=== PATIENT | female | born 1995 | race Caucasian/White ===

== ENCOUNTER 2023-08-10 13:16 | Emergency (ER) | payer BC, SELFPAY ==
[2023-08-10 13:32] VITALS: BP 111/71; PULSE 72; RESP 16; TEMP 37.1; O2SAT 100
--- NOTE | 2023-08-10 14:00 | DI.RAD_ITS ---
Exam(s) XR SHOULDER LT COMPLETE 2+V XR HUMERUS LT EXAM: XR SHOULDER LT COMPLETE 2+V and XR humerus LT CLINICAL HISTORY: Left shoulder pain. TECHNIQUE: 2D digital imaging was performed of the left humerus and shoulder. Six images were obtai catie. AP, Grashey, Y-view and lateral views were obtained. COMPARISON: CR,XR XR CHEST 1V IN DI DEPT from 08/10/2023 FINDINGS: BONES: There is an acute comminuted fracture of the proximal left humerus. There is a transverse com ponent of the fracture through the surgical neck. There is impaction and mild lateral displacement o f the distal fracture. There also appears to be a component involving the greater tuberosity which i s nondisplaced. No bony destructive lesion is seen. JOINTS: No dislocation present. The acromioclavicular joint is unremarkable. SOFT TISSUE: Normal. IMPRESSION: Acute comminuted fracture involving the proximal left humerus as described above. DATA REPOSITORY: RADIATION DOSE DELIVERED:
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
[2023-08-10] MEDS: Ibuprofen 600 MG TAB PO (15:31)
[2023-08-10] MEDS: Ondansetron O.D.T. 4 MG TABEF PO (15:31)
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
--- NOTE | 2023-08-10 16:07 | DI.VRAD_ITS ---
PROCEDURE INFORMATION: Exam: XR Left Shoulder Exam date and time: 08/10/2023 2:43 PM Age: 28 years old Clinical indication: Other: Left shoulder pain TECHNIQUE: Imaging protocol: Radiologic exam of the left shoulder. Views: 2 or more views. COMPARISON: CR XR CHEST 1V IN DI DEPT 08/10/2023 2:42 PM FINDINGS: Bones/joints: Acute, displaced fracture of the left proximal humerus at the surgical neck, with extension into the greater tuberosity. No dislocation. Soft tissues: Normal. IMPRESSION: Acute, displaced fracture of the left proximal humerus at the surgical neck, with extension into the greater tuberosity. Dictated and Authenticated by: Tal Sheth MD. Ordering:CANDI Esparza MD
--- NOTE | 2023-08-10 16:07 | DI.VRAD_ITS ---
PROCEDURE INFORMATION: Exam: XR Left Humerus Exam date and time: 08/10/2023 2:49 PM Age: 28 years old Clinical indication: Other: Left proximal humerus pain TECHNIQUE: Imaging protocol: Radiologic exam of the left humerus. Views: 2 or more views. COMPARISON: CR XR SHOULDER LT COMPLETE 2+V 08/10/2023 2:43 PM FINDINGS: Bones/joints: Acute, displaced fracture of the proximal humerus at the surgical neck, with extension into the greater tuberosity. No dislocation. Soft tissues: Normal. IMPRESSION: Acute, displaced fracture of the proximal humerus at the surgical neck, with extension into the greater tuberosity. Dictated and Authenticated by: Tal Sheth MD. Ordering:CANDI Esparza MD
--- NOTE | 2023-08-10 17:00 | DI.CT_ITS ---
Exam(s) CT UPPER EXTREMITY LT WO EXAM: CT UPPER EXTREMITY LT WO CLINICAL HISTORY: ? Tuberosity fracture. TECHNIQUE: Imaging Protocol: Axial computed tomography images with coronal and sagittal reformatted images were created and reviewed. COMPARISON: CR,XR XR SHOULDER LT COMPLETE 2+V from 08/10/2023 CR,XR XR HUMERUS LT from 08/10/2023 FINDINGS: Bones: There is an acute comminuted fracture of the proximal humerus. The main fracture component o ccurs at the surgical neck site. There is impaction of the fracture noted. There is also mild later al displacement of the humeral shaft relative to the glenoid. The fracture extends superiorly to inv olve the lateral aspect of the greater tuberosity. The glenohumeral joint is well intact as is the a cromioclavicular joint. No cellulitic or osteomyelitic changes are identified. There is no evidence of joint space narrowing or cystic degeneration seen. No lytic or sclerotic lesions are identified. Soft Tissues: There is soft tissue swelling around the shoulder. IMPRESSION: There is an acute comminuted impacted fracture involving the proximal humerus. The primary component of the fractures through the surgical neck. But there is extension into the greater tuberosity. RADIATION DOSE DELIVERED: Total DLP Total DLP DATA REPOSITORY: All CT scans at this facility are submitted to the National Radiology Data Registry (NRDR) Dose Index Registry (DIR) with the [employer] (ACR). RADIATION OPTIMIZATION: All CT scans at this facility use at least one of these dose optimization te chniques: automated exposure control; mA and/or kV adjustment per patient size (includes targeted exa ms where dose is matched to clinical indication); or iterative reconstruction.
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
[2023-08-10] MEDS: Acetaminophen 325 MG TAB 650 MG PO (19:27)
--- NOTE | 2023-08-10 20:12 | ED.PROG_ITS ---
Date of service: 08/10/23 Time of Service: 20:12 Medical Decision Making Resting comfortably no acute distress. [facility] was able to review of CT imaging, no evidence of dislocation, patient cleared for discharge home in [facility] to follow-up to arrange for operative repair. Patient is from [place] and plans to return home in the coming days counseled to seek orthopedic follow-up within the next week otherwise to proceed with [facility] follow-up. Quality:[facility] Health Related Social Needs: No Data to Display Sign Out Sign Out Data: Sign Out Comment: 28-year-old female with left proximal closed nondominant humerus fracture with orthopedics at [facility] requesting the following which have been ordered: 1. Axillary view x-ray 2. CT left upper extremity shoulder 3. 81 mg aspirin Follow-up items: Please reconsult with [facility] following imaging. Please update patient following imaging. Please ensure patient has a new CD of her repeat x-ray and CT scan. Please ensure that the pharmacy is open to the patient to receive her opiates. Please ensure patient can pass an ambulatory and a p.o. trial in the ED prior to discharge. Last updated by Isaias Albert MD at 08/10/23 17:12 Discharge Plan Disposition Patient Disposition: Home Condition: Stable Discharge Details Clinical Impression: Closed left humeral fracture Primary Care Provider: Unknown,Unknown ED Provider: Catrachito James Home Meds and New Rx's Prescriptions: New morphine 15 mg tablet 15 mg PO Q8H PRNQty: 7 0RF aspirin 81 mg capsule 81 mg PO BID Qty: 60 0RF Discharge Instructions Additional Instructions: You are seen in the emergency department for your shoulder pain. You are found to have a humeral neck fracture for which you need to wear this sling until seen by the orthopedic team. Please return to the emergency department if you develop any numbness or tingling in your left hand or if your left hand turns blue. A prescription has been sent for morphine to the pharmacy department to help. Please take these only after taking acetaminophen and ibuprofen. Please not drive or drink alcohol after taking morphine. The orthopedic team has advised that you take aspirin twice a day. This unfortunate means that you cannot take ibuprofen. For your pain please take medications as follows: 1. Take acetaminophen (Tylenol), 1,000 mg (two 500 mg tabs) every 6 hours
[2023-08-10 20:25] VITALS: BP 125/65; PULSE 89; RESP 16; TEMP 37.1; O2SAT 98
== END 2023-08-10 20:29 | disposition home or self-care (01) ==
PROVIDERS: Emergency Provider Emergency Medicine
DX: S42.352A Displaced comminuted fracture of shaft of humerus, left arm, initial encounter for closed fracture (principal); V18.0XXA Pedal cycle driver injured in noncollision transport accident in nontraffic accident, initial encounter
CPT/HCPCS: 00123; 99284; 71045; 73030; 73060; 73200; 99283